=== PATIENT | female | born 1955 | race Two or more races ===

== ENCOUNTER 2020-11-14 07:24 | Day surgery (SDC) | payer MEDICARE ==
[2020-11-13 17:06] LABS: BASOPHILS % (AUTO) 0.6 % (0-1); EOSINOPHILS # (AUTO) 0.2 X10'3 (0-0.9); EOSINOPHILS % (AUTO) 3.4 % (0-6); HEMATOCRIT 39.4 % (35.0-45.0); HEMOGLOBIN 13.1 g/dl (12.0-16.0); LYMPHOCYTES # (AUTO) 2.3 X10'3 (1.1-4.8); LYMPHOCYTES % (AUTO) 39.7 % (21-51); MEAN CORPUSCULAR HEMOGLOBIN 27.8 PG (27.0-31.0); MEAN CORPUSCULAR HGB CONC 33.1 g/dL (33.0-36.5); MEAN CORPUSCULAR VOLUME 83.9 FL (78-98); MEAN PLATELET VOLUME 8.2 FL (7.4-10.4); MONOCYTES # (AUTO) 0.4 X10'3 (0-0.9); MONOCYTES % (AUTO) 7.4 % (2-12); NEUTROPHILS # (AUTO) 2.9 X10'3 (1.8-7.7); NEUTROPHILS % (AUTO) 48.9 % (42-75); PLATELET COUNT 257 X10'3 (140-440); RED CELL DISTRIBUTION WIDTH 14.7 % (11.5-14.5); WHITE BLOOD COUNT 5.9 X10'3 (4.5-11.0)
[2020-11-13 17:08] LABS: PARTIAL THROMBOPLASTIN TIME 28 SECONDS (22-32)
[2020-11-13 17:12] LABS: ALANINE AMINOTRANSFERASE 72 U/L (12-78); ALBUMIN 3.9 G/DL (3.4-5.0); ALBUMIN/GLOBULIN RATIO 1.1 (1.1-1.5); ALKALINE PHOSPHATASE 57 IU/L (46-116); ANION GAP 10 (8-16); ASPARTATE AMINO TRANSFERASE 65 U/L (10-37); BILIRUBIN,TOTAL 0.9 MG/DL (0.1-1.0); BLOOD UREA NITROGEN 20 MG/DL (7-18); CALCIUM 9.3 MG/DL (8.5-10.1); CHLORIDE 103 MMOL/L (99-107); CREATININE 0.77 MG/DL (0.40-0.90); GLUCOSE 93 MG/DL (70-104); POTASSIUM 3.1 MMOL/L (3.5-5.1); SODIUM 141 MMOL/L (135-145); TOTAL CARBON DIOXIDE 27.9 MMOL/L (24-32); TOTAL PROTEIN 7.5 G/DL (6.4-8.2); eGFR 75 ML/MIN
[~2020-11-14] VITALS: Ht 162.6 cm; Wt 67.9 kg
[2020-11-14] VITALS (7 sets, daily range): BP systolic 104–121; BP diastolic 59–73
[2020-11-14] MEDS ORDERED: normal saline 1,000 ML IV SCH (07:45)
[2020-11-14] MEDS ORDERED: diphenhydrAMINE 25mg capsule PO PRN (07:45)
[2020-11-14] MEDS ORDERED: LORazepam 0.5 MG tablet PO PRN (07:45)
[2020-11-14] MEDS ORDERED: LIDOcaine/PRILOcaine 5gm cream TP ONE (07:45)
[2020-11-14] MEDS ORDERED: MULT-1085 PO (08:00)
[2020-11-14] MEDS ORDERED: ACET-890 PO (08:00)
[2020-11-14] MEDS ORDERED: METF-950 PO (08:00)
[2020-11-14] MEDS ORDERED: BENA1TAB19 (08:00)
[2020-11-14] MEDS ORDERED: EZET10TA48 PO (08:00)
[2020-11-14] MEDS ORDERED: EVOL140P3 SUBCUT (08:00)
[2020-11-14] MEDS ORDERED: IBUP200C89 PO (08:00)
[2020-11-14] MEDS ORDERED: HYDR25TA4 PO (08:00)
[2020-11-14] MEDS ORDERED: GABA-530 PO (08:00)
[2020-11-14] MEDS ORDERED: ASPI-1264 PO (08:00)
[2020-11-14] MEDS ORDERED: verapamil 2.5 mg/ml inj IV ONE (09:06)
[2020-11-14] MEDS ORDERED: heparin 1,000unit/ml 10ml vial 10 ML ONE (09:07)
[2020-11-14] MEDS ORDERED: iohexol 350MG/ML 100ml bottle IV ONE (09:07)
[2020-11-14] MEDS ORDERED: fentaNYL/PF 50MCG/1 ML 2ML syringe ONE (09:07)
[2020-11-14] MEDS ORDERED: midazolam 1 mg/ML 2ml injection ONE (09:07)
[2020-11-14] MEDS ORDERED: LIDOcaine 1% (10mg/ml)w/preservative injection 20ml MDV ONE (09:07)
[2020-11-14] MEDS ORDERED: IOHEXOL 350 MG/ML INFUS..BTL 75ML IV ONE (09:07)
[2020-11-14] MEDS ORDERED: nitroGLYCERIN-Tridil 50MG/D5W 250 ML IV ONE (09:07)
[2020-11-14] MEDS ORDERED: potassium Cl 20 mEq SR tablet PO STA (10:49)
--- NOTE | 2020-11-14 10:49 | NUR ---
Dr. Spears at bedside. Order received for 40 MEQ K PO now x1.
[2020-11-14] MEDS ORDERED: normal saline 1000ml 1,000 ML IV SCH (10:55)
--- NOTE | 2020-11-14 11:00 | NUR ---
Dr. Spears at bedside. stated ok to DC pt at 1230 if stable.
== END 2020-11-14 12:40 | disposition home or self-care (01) ==
LOC: SSTAY O 07:24
PROVIDERS: ATTEND Internal Medicine Cardiovascular Disease
DX: R94.39 Abnormal result of other cardiovascular function study (principal); R53.83 Other fatigue; R06.02 Shortness of breath; I25.10 Atherosclerotic heart disease of native coronary artery without angina pectoris; E11.9 Type 2 diabetes mellitus without complications; I10 Essential (primary) hypertension; E78.5 Hyperlipidemia, unspecified; Z79.84 Long term (current) use of oral hypoglycemic drugs; Z79.82 Long term (current) use of aspirin; Z79.899 Other long term (current) drug therapy; M19.90 Unspecified osteoarthritis, unspecified site; Z82.3 Family history of stroke; Z82.49 Family history of ischemic heart disease and other diseases of the circulatory system
CPT/HCPCS: 36415; 76937; 80053; 82948; 85025; 85610; 85730; 93005; 93458; 99152; 99153; C1769; C1894; J1644; J2001; J2250; J3010; J7030; Q0163; Q9967; A4620; A5120; A6258; J3490